=== PATIENT | male | born 1995 ===

== ENCOUNTER 2022-05-27 03:00 | Emergency (ER) | payer SELFPAY ==
[2022-05-27 03:06] VITALS: BP 125/76; PULSE 64; RESP 18; TEMP 98
--- NOTE | 2022-05-27 04:10 | ED ---
General Adult HPI - General Chief complaint: Recheck/Abnormal Lab/Rx Stated complaint: covid swab Time Seen by Provider: 05/27/22 03:32 Source: patient, RN notes reviewed Mode of arrival: ambulatory Limitations: language barrier - History of Present Illness Initial comments: 26-year-old male presents to the emergency department requesting a Covid test [place]. He denies any symptoms or complaints at this time. - Related Data Allergies Allergy/AdvReac Type Severity Reaction Status Date / Time No Known Allergies Allergy Verified 05/27/22 03:03 Review of Systems ROS Statement: Those systems with pertinent positive or pertinent negative responses have been documented in the HPI. ROS Other: All systems not noted in ROS Statement are negative. Past Medical History Past Medical History: No Reported History History of Any Multi-Drug Resistant Organisms: None Reported Past Surgical History: No Surgical Hx Reported Past Psychological History: No Psychological Hx Reported Smoking Status: Current every day smoker Past Alcohol Use History: None Reported Past Drug Use History: None Reported General Exam Limitations: language barrier General appearance: alert, in no apparent distress (Well-developed, well- nourished male in no acute distress. Initial temperature 98.0, pulse 64, respirations 18, blood pressure 125/76, pulse ox 99% on room air.) Respiratory exam: Present: normal lung sounds bilaterally. Absent: respiratory distress, wheezes, rales, rhonchi, stridor Cardiovascular Exam: Present: regular rate, normal rhythm, normal heart sounds. Absent: systolic murmur, diastolic murmur, rubs, gallop, clicks GI/Abdominal exam: Present: soft, normal bowel sounds. Absent: distended, tenderness, guarding, rebound, rigid Neurological exam: Present: alert, oriented X3, CN II-XII intact Psychiatric exam: Present: normal affect, normal mood Course Vital Signs 05/27/22 03:03 Temperature 98 F Pulse Rate 64 Respiratory 18 Rate Blood Pressure 125/76 O2 Sat by Pulse 99 Oximetry Medical Decision Making - Medical Decision Making This is a 26-year-old male in no significant past medical history who presents to the emergency department requesting a Covid test [place]. He has no complaints at this time. Physical exam findings are unremarkable. His Covid test was negative. He is instructed to follow up for any further care as he needs. Attending: Monique. - Lab Data Lab Results 05/27/22 Range/Units 03:13 Coronavirus (PCR) Not Detected (Not Detectd) Disposition Clinical Impression: Normal exam Disposition: HOME SELF-CARE Condition: Stable Instructions (If sedation given, give patient instructions): Normal Exam (ED) Additional Instructions: Your Covid test was negative. Is patient prescribed a controlled substance at d/c from ED?: No Referrals: None,Stated [Primary Care Provider] - 1-2 days Time of Disposition: 04:10
== END 2022-05-27 04:30 | disposition home or self-care (01) ==
LOC: EC 03:00
DX: Z00.00 Encounter for general adult medical examination without abnormal findings (principal); Z20.822 Contact with and (suspected) exposure to COVID-19
CPT/HCPCS: 87635